=== PATIENT | male | born 1930 | race Caucasian/White ===

== ENCOUNTER → 2016-06-15 | Outpatient (CLI) | payer MEDICARE, BC ==
[~2016-06-15] MED LIST: ACID REDUCER20 MG PO; AGGRENOX1 CAP PO; ALENDRONATE SOD70 MG PO; AMARYL1 MG PO; AMLODIPINE BESY10 MG PO; AMLODIPINE BESYL5 MG PO; AMPICILLIN 500 MG PO; ASPIRIN81 M1 PO; BISOPROLOL FUMA10 MG PO; CARAFATE1 GM; DIOVAN PO; DIOVAN320 MG PO; FLOMAX0.4 M1 PO; FOSAMAX70 MG PO; HYDROCHLOROTHIA25 MG PO; IBUPROFEN600 MG PO; LORTAB 101 TAB 10/5 PO; NAPROSYN375 MG PO; NORVASC 10 MG PO; NORVASC PO; PERCOCET PO; PERCOCET5/325 PO; PLAVIX PO; PRAVASTATIN SOD40 MG PO; UNKNOWN ANTIBIOTIC PO; VITAMIN D50000 UNIT PO; ZOFRAN ODT4 MG PO; [UNRECOGNIZED DRUG - OTHER]
--- NOTE | ~2016-06-15 | CR212 ---
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 Referring Physician: Jordana Newsome A.P.R.N. Ordering Physician: Jordana Newsome A.P.R.N. Primary Care Physician: Jordana Newsome A.P.R.N. MEDICAL IMAGING REPORT This report is preliminary unless electronic signature is present. EXAM Left rib series, 06/15/2016 12:05 hours HISTORY Patient complains of left lateral rib pain under arm after sneezing yesterday. Cough. COMPARISON None FINDINGS AP and oblique views of the left ribs demonstrate an acute minimally displaced anterior left fifth rib fracture. There is ununited segment of the posterior 11th rib which appears well corticated and is likely developmental or related to old trauma. A nondisplaced anterolateral 4th rib fracture cannot be excluded. IMPRESSION There is an acute minimally displaced anterior left fifth rib fracture. There is a possible adjacent fourth rib fracture. There is a ununited segment of the anterior aspect of the 11th rib which has well corticated margin and is likely developmental or related to old trauma. No pleural effusion or pneumothorax is seen. STAT * RESULT Dictated by... Erika Lopez M.D. THIS IS AN ELECTRONICALLY VERIFIED REPORT Erika Lopez M.D. at 06/17/2016 6:57 PM ADRIÁN/deana STS. [facility] A Service of [facility] RADIOLOGY TEXT RESULTS PATIENT: IMTIAZ OLEA LOCATION: [facility] : 28 UNIT #: [id number] AGE: [address]: Jordana Newsome SEX: M ORDER DR: TD: 06/15/2016 14:34 JOB #: [id number] MEDICAL IMAGING REPORT Page 1 of 1
--- NOTE | ~2016-06-15 | CR63 ---
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 Referring Physician: Jordana Newsome A.P.R.N. Ordering Physician: Jordana Newsome A.P.R.N. Primary Care Physician: Jordana Newsome A.P.R.N. MEDICAL IMAGING REPORT This report is preliminary unless electronic signature is present. EXAM 2 view chest INDICATION Left-sided arm and chest pain. Cough. 2-day duration. FINDINGS PA and lateral views of the chest compared to 09/12/2015 and 04/19/2015. The heart is enlarged. There is tortuous thoracic aorta similar to the prior study. No new pulmonary opacities. There is background COPD and some chronic interstitial change. No effusion. IMPRESSION 1. No acute cardiopulmonary findings or significant change. 2. Cardiomegaly and background COPD. 1. Dictated by... Felipe Fritz M.D. THIS IS AN ELECTRONICALLY VERIFIED REPORT Felipe Fritz M.D. at 06/15/2016 3:14 PM Ryan TD: 06/15/2016 14:33 JOB #: [id number] MEDICAL IMAGING REPORT Page 1 of 1
== END | disposition home or self-care (01) ==
LOC: SRAD 11:51
DX: R07.81 Pleurodynia (principal); I51.7 Cardiomegaly; S22.32XK Fracture of one rib, left side, subsequent encounter for fracture with nonunion; S22.32XD Fracture of one rib, left side, subsequent encounter for fracture with routine healing
CPT/HCPCS: 71020; 71100